=== PATIENT | female | born 1950 | race Caucasian/White ===

== ENCOUNTER → 2016-07-10 | Outpatient (CLI) | payer OTHER ==
[~2016-07-10] MED LIST: ASPI-345 PO; ATOR20TA PO; BISO1TAB94 PO; CYCL-265 PO; ESTR0.62 PO; FLUT16SP; LORA10TA76 PO; LSNP10T PO; MULT-642 PO; OMEG300C3; OMEP20CA12 PO; ONDAN4ODT PO; OXYC1TAB87 PO; TICA90TA PO; VITA1CAP PO
== END ==
LOC: RT 10:55
PROVIDERS: ATTEND Internal Medicine
DX: I25.10 Atherosclerotic heart disease of native coronary artery without angina pectoris (principal)
CPT/HCPCS: 93005